=== PATIENT | female | born 1970 | race Caucasian/White ===

== ENCOUNTER 2017-04-05 06:40 | Emergency (ER) | payer SELFPAY ==
[~2017-04-05] VITALS: Ht 162.6 cm; Wt 90.0 kg
[~2017-04-05 06:40] MED LIST: BUPR150T3 PO; LOMO PO; PROM1SUP12 PR
[2017-04-05 06:42] VITALS: BP 176/93; PULSE 78; RESP 16; TEMP 98.8; O2SAT 100
--- NOTE | 2017-04-05 07:17 | PD ---
HPI Chief Complaint: GI Complaint Time Seen by Provider: 07:05 Travel History International Travel<30 days: No Contact w/Intl Traveler<30days: No Traveled to known affect area: No History of Present Illness HPI 47-year-old female came to the emergency room with vomiting, diarrhea and headache all of which started yesterday afternoon at 4 PM. Patient says that she was doing fine yesterday morning and then all the symptoms started all of a sudden. She has not been able to hold any food or water down because of the vomiting. Diarrhea equally continues. Diarrhea is watery and nonbloody. No blood in the vomit either. She is having some chills but no fever. She took some ibuprofen at 5 this morning but took her temperature and it was 98. Vital signs are stable. She is complaining of headache which she says is pretty much all over her head and rates it 8 out of 10. No history of neck stiffness and neck pain. Patient does not get headaches usually. She works in an assisted care living and does not recall anybody being sick in her workplace or at home. No history of eating outside food. She usually cooks meals at home and ate regular food. Vital signs were stable. She is otherwise a relatively healthy person. [facility] Past Medical History Narrative Medical list of her past medical, surgical, social and family history is reviewed from the nursing note. Diminished Hearing: No Diverticulitis: Yes Thyroid Disease: Yes (HYPO) Tetanus Vaccination: > 5 Years ?: Not Past Surgical History Cholecystectomy: Yes Social History Alcohol Use: Yes (OCCASSIONAL) Tobacco Use: No Substance Use: No Allergies-Medications (Allergen,Severity, Reaction): Uncoded Allergies: HEPATITIS B VACCINE (Allergy, Unknown, 02/25/03) Comments List of her allergies reviewed from the nursing note. Reported Meds & Prescriptions Reported Meds & Active Scripts Active Phenergan Supp (Promethazine HCl) 25 Mg Supp 25 Mg RECTAL Q6H PRN Phenergan 25 mg supp (Promethazine HCl) 25 Mg Sup 25 Mg [place] Q8HPRN Lomotil (Diphenoxylate HCl/Atropine) 1 Tab Tab 2 Tab PO Q6HPRN Reported Bupropion Hcl Xl (Bupropion HCl) 150 Mg Tab 300 Mg PO DAILY Narrative Medication List of her home medications reviewed from the nursing note. Review of Systems Except as stated in HPI: all other systems reviewed are Neg Gastrointestinal: Positive: Nausea, Vomiting, Diarrhea Neurologic: Positive: Headache Physical Exam Narrative GENERAL: Awake, alert, obese, moderate distress SKIN: Focused skin assessment warm/dry. HEAD: Atraumatic. Normocephalic. EYES: Pupils equal and round. No scleral icterus. No injection or drainage. ENT: No nasal bleeding or discharge. Dry mucous membrane NECK: Trachea midline. No JVD. CARDIOVASCULAR: Regular rate and rhythm. No murmur appreciated. RESPIRATORY: No accessory muscle use. Clear to auscultation. Breath sounds equal bilaterally. GASTROINTESTINAL: Abdomen soft, non-tender, nondistended. Hepatic and splenic margins not palpable. MUSCULOSKELETAL: No obvious deformities. No clubbing. No cyanosis. No edema. NEUROLOGICAL: Awake and alert. No obvious cranial nerve deficits. Motor grossly within normal limits. Normal speech. PSYCHIATRIC: Appropriate mood and affect; insight and judgment normal. Data Data Last Documented VS Orders Orders Complete Blood Count With Diff (04/05/17 07:26) Comprehensive Metabolic Panel (04/05/17 07:26) Urinalysis - C+S If Indicated (04/05/17 07:26) Iv Access Insert/Monitor (04/05/17 07:26) Ecg Monitoring (04/05/17 07:26) Oximetry (04/05/17 07:26) Sodium Chlor 0.9% 1000 Ml Inj (Ns 1000 M (04/05/17 07:26) Sodium Chloride 0.9% Flush (Ns Flush) (04/05/17 07:30) Metoclopramide Inj (Reglan Inj) (04/05/17 07:30) Ed Discharge Order (04/05/17 09:01) Labs Laboratory Tests Test 04/05/17 07:40 White Blood Count 8.3 TH/MM3 Red Blood Count 5.12 MIL/MM3 Hemoglobin 15.3 GM/DL Hematocrit 44.5 % Mean Corpuscular Volume 86.8 FL Mean Corpuscular Hemoglobin 30.0 PG Mean Corpuscular Hemoglobin Concent 34.5 % Red Cell Distribution Width 13.9 % Platelet Count 264 TH/MM3 Mean Platelet Volume 9.1 FL Neutrophils (%) (Auto) 61.6 % Lymphocytes (%) (Auto) 29.5 % Monocytes (%) (Auto) 7.0 % Eosinophils (%) (Auto) 1.3 % Basophils (%) (Auto) 0.6 % Neutrophils # (Auto) 5.1 TH/MM3 Lymphocytes # (Auto) 2.5 TH/MM3 Monocytes # (Auto) 0.6 TH/MM3 Eosinophils # (Auto) 0.1 TH/MM3 Basophils # (Auto) 0.0 TH/MM3 CBC Comment DIFF FINAL Differential Comment Urine Color YELLOW Urine Turbidity HAZY Urine pH 6.0 Urine Specific [place] 1.029 Urine Protein TRACE mg/dL Urine Glucose (UA) TRACE mg/dL Urine Ketones NEG mg/dL Urine Occult Blood SMALL Urine Nitrite NEG Urine Bilirubin NEG Urine Urobilinogen LESS THAN 2.0 MG/DL Urine Leukocyte Esterase NEG Urine RBC LESS THAN 1 /hpf Urine WBC 2 /hpf Urine Squamous Epithelial Cells 9 /hpf Urine Mucus FEW /lpf Microscopic Urinalysis Comment CULT NOT INDICATED Blood Urea Nitrogen 12 MG/DL Creatinine 0.74 MG/DL Random Glucose 148 MG/DL Total Protein 7.5 GM/DL Albumin 3.7 GM/DL Calcium Level 9.1 MG/DL Alkaline Phosphatase 140 U/L Aspartate Amino Transf (AST/SGOT) 34 U/L Alanine Aminotransferase (ALT/SGPT) 54 U/L Total Bilirubin 0.2 MG/DL Sodium Level 137 MEQ/L Potassium Level 3.9 MEQ/L Chloride Level 105 MEQ/L Carbon Dioxide Level 25.3 MEQ/L Anion Gap 7 MEQ/L Estimat Glomerular Filtration Rate 85 ML/MIN [facility] Medical Decision Making Medical Screen Exam Complete: Yes Emergency Medical Condition: Yes Medical Record Reviewed: Yes Differential Diagnosis Viral syndrome, gastroenteritis, dehydration, electrolyte abnormality Narrative Course 8:56 AM CBC is within normal limits. CMP is within acceptable limits as well. UA is negative. Patient was given 1 L of IV fluid bolus and IV Reglan. I just reassessed her and patient says she is feeling much better. Headache is down to 3 out of 10. She is finishing with the bolus right now. Once that's done patient will be discharged home and she is comfortable with that. I'll give her a prescription for Zofran to go home with. Procedures EKG Prior to Arrival: No Diagnosis Primary Impression: Acute gastroenteritis Additional Impression: Viral syndrome Referrals: Primary Care Physician 2 days Additional Instructions: Please return to the ER if the condition worsens or any other new concerns. Otherwise drink fluids to stay hydrated. Take the medication as per the prescription direction. Follow-up with your primary care if symptoms persist. Med/Other Pt SpecificInfo: Prescription(s) given Scripts Promethazine Supp (Phenergan Supp) 25 Mg Supp 25 MG RECTAL Q6H Y for NAUSEA OR VOMITING, #4 SUPP 0 Refills Prov: Hilda Cavazos MD 04/05/17 Disposition: 01 DISCHARGE HOME Condition: Stable Hilda Cavazos MD Apr 05, 2017 07:17
[2017-04-05] MEDS ORDERED: SODIUM CHLOR 0.9% 1000 ML INJ 1,000 ML IV SCH (07:26)
[2017-04-05] MEDS ORDERED: METOCLOPRAMIDE HCL 10 MG/2 ML VIAL IV PUSH ONE (07:30)
[2017-04-05] MEDS ORDERED: SODIUM CHLORIDE 0.9% FLUSH 10 ML FLUSH IV FLUSH PRN (07:30)
[2017-04-05 08:09] LABS: AUTOMATED NEUTROPHIL # 5.1 TH/MM3 (1.8-7.7); BASOPHIL % 0.6 % (0.0-2.0); EOSINOPHIL # 0.1 TH/MM3 (0-0.4); EOSINOPHIL % 1.3 % (0.0-4.0); HEMATOCRIT 44.5 % (35.0-46.0); HEMO FLAGS DIFF FINAL; LYMPH % 29.5 % (9.0-44.0); LYMPHOCYTE # 2.5 TH/MM3 (1.0-4.8); MEAN CELL VOLUME 86.8 FL (80.0-100.0); MEAN CORPUSCULAR HGB CONC 34.5 % (32.0-36.0); NEUT % 61.6 % (16.0-70.0); PLATELET COUNT 264 TH/MM3 (150-450); RED BLOOD COUNT 5.12 MIL/MM3 (4.00-5.30); RED CELL DISTRIBUTION WIDTH 13.9 % (11.6-17.2); WHITE BLOOD COUNT 8.3 TH/MM3 (4.0-11.0)
[2017-04-05 08:13] LABS: BLOOD, URINE SMALL (NEG); GLUCOSE,URINE TRACE mg/dL (NEG); KETONE, URINE NEG (NEG); MUCUS URINE FEW /lpf (OCC); NITRITE,URINE NEG (NEG); SQUAMOUS EPITHELIAL CELL URINE 9 /hpf (0-5); URINE COLOR YELLOW (YELLW/STRAW)
[2017-04-05 08:15] LABS: COMMENT (UR) CULT NOT INDICATED; CULTURE IF INDICATED CULT NOT INDICATED
[2017-04-05 08:48] LABS: ANION GAP 7 MEQ/L (5-15); AST (GOT) 34 U/L (15-37); BICARBONATE 25.3 MEQ/L (21.0-32.0); BLOOD UREA NITROGEN 12 MG/DL (7-18); CHLORIDE 105 MEQ/L (98-107); GLOMERULAR FILTRATION RATE 85 ML/MIN (>89); POTASSIUM 3.9 MEQ/L (3.5-5.1); SODIUM (NA) 137 MEQ/L (136-145)
[2017-04-05 08:50] LABS: ALT (GPT) 54 U/L (10-53)
[2017-04-05 08:52] LABS: ALKALINE PHOSPHATASE 140 U/L (45-117); TOTAL BILIRUBIN ADULT 0.2 MG/DL (0.2-1.0)
[2017-04-05] MEDS ORDERED: PROM1SUP7 RECTAL (09:00)
[2017-04-05 10:13] VITALS: BP 123/79
== END 2017-04-05 16:19 | disposition home or self-care (01) ==
LOC: NEPE 06:40
DX: K52.9 Noninfective gastroenteritis and colitis, unspecified (principal); B34.9 Viral infection, unspecified; R51 Headache; R68.83 Chills (without fever); E07.9 Disorder of thyroid, unspecified; Z87.19 Personal history of other diseases of the digestive system
CPT/HCPCS: 80053; 81001; 85025; 96361; 96374; 99284; J2765; J7030